=== PATIENT | female | born 1970 | race African-American/Black ===

== ENCOUNTER 2019-06-21 21:18 | Emergency (ER) | payer OTHER ==
[~2019-06-21] VITALS: Ht 165.1 cm; Wt 79.4 kg
[2019-06-21 21:20] VITALS: BP 125/77
--- NOTE | 2019-06-21 23:21 | NUR ---
PT AMBULATED TO BED 02
[2019-06-21] MEDS ORDERED: diphenhydrAMINE 50 MG/ML VIAL IVP ONE (23:25)
[2019-06-21] MEDS ORDERED: EPINEPHrine 1:1000 - 1 MG/ML AMP IM ONE (23:25)
[2019-06-21] MEDS ORDERED: FAMOTIDINE 20 MG/2 ML VIAL IVP ONE (23:25)
[2019-06-21] MEDS ORDERED: methylPREDNISolone SS 125 MG/2 ML VIAL IVP ONE (23:25)
[2019-06-21] MEDS ORDERED: NACL 0.9% 1,000 ML IV ONE (23:40)
--- NOTE | 2019-06-21 23:48 | NUR ---
48 Y/O FEMALE PRESENT TO ER WITH ALLERGIC REACTION BEGINNING THIS MORNING. HIVES/WELTS THROUGHOUT BODY, SWOLLEN LIPS, SWELLED EYES BEGAN THIS MORNING. PATIENT DOES NOT RECALL HAVING ALLERGIES TO ANYTHING, HAD A MASSAGE LAST NIGHT THAT SHE BELIEVES MAY HAVE CAUSED REACTION. DENIES SOB/CP. RESP EVEN AND UNLABORED. LUNG SOUNDS CLEAR IN BILAT LOBES. BOWEL SOUNDS NORMOACTIVE IN ALL QUADRANTS. SKIN INTACT. AIRWAY REMAINS UNOBSTRUCTED. WELTS NOTED IN UPPER/LOWER BILAT EXTREMITIES. AAOX4 NO PMH NKA
--- NOTE | 2019-06-22 00:36 | NUR ---
SWELLING HAS DECREASED IN LIPS, PT REPORTS LESS ITCHINESS AND REDUCTION IN HIVES
[2019-06-22 00:42] VITALS: BP 125/77
--- NOTE | 2019-06-22 00:43 | NUR ---
Patient discharged with v/s stable. Written and verbal after care instructions given and explained. Patient alert, oriented and verbalized understanding of instructions. Ambulatory with steady gait. All questions addressed prior to discharge. ID band removed. Patient advised to follow up with PMD. Rx of BENADRYL, PREDISONE, EPIPEN given. Patient educated on indication of medication including possible reaction and side effects. Opportunity to ask questions provided and answered.
--- NOTE | 2019-06-22 12:52 | NUR ---
Late entry. Confirmed with RN that 0.9 NS IV completed at 2440
[2019-06-23] MEDS ORDERED: BEN50 PO (08:36)
[2019-06-23] MEDS ORDERED: PRED20TA5 PO (08:36)
== END 2019-06-22 00:43 | disposition home or self-care (01) ==
LOC: MED 21:18
DX: L50.0 Allergic urticaria (principal)
CPT/HCPCS: 96361; 96374; 96375; 99284; J0171; J1200; J2930; J3490; J7030

== ENCOUNTER 2019-06-23 08:17 | Emergency (ER) | payer OTHER ==
[~2019-06-23] VITALS: Ht 165.1 cm; Wt 83.6 kg
[2019-06-23 08:20] VITALS: BP 104/55
--- NOTE | 2019-06-23 08:27 | NUR ---
PT AMBULATED TO ER BED 12
--- NOTE | 2019-06-23 08:30 | NUR ---
48 Y/O FEMALE RETURNS TO [facility], AFTER 48 HR WITH CONTINUED C/O OF RAISED RED BURNING, ITCY BLOTCHES COVERING FACE, AND BODY. PT STATES SHE HAS TAKEN PRESCRIBED RX, BENADRYL, AND PREDNISONE BUT STILL NO RELIEF OF SYMPTOMS. DENIES ANY RESPIRATORY ISSUES, OR CARDIAC ISSUES. DENIES IN GI/ ISSUES. LMP 06/21/2019. SHE STATES AFTER MASSAGE THERAPIST USED UNK OILS ON 06/20/2019, REACTION STARTED. WILL CONTINUE TO MONITOR, SIDERAIL X 1 NO PMH NKDA
[2019-06-23] MEDS ORDERED: BEN50 PO (08:36)
[2019-06-23] MEDS ORDERED: PRED20TA5 PO (08:36)
--- NOTE | 2019-06-23 09:26 | NUR ---
DR. CHEUNG AT BEDSIDE
[2019-06-23 09:50] VITALS: BP 104/55
--- NOTE | 2019-06-23 09:50 | NUR ---
Patient discharged with v/s stable. Written and verbal after care instructions given and explained. Patient alert, oriented and verbalized understanding of instructions. Ambulatory with steady gait. All questions addressed prior to discharge. ID band removed. Patient advised to follow up with PMD. Rx of PREDNISONE, BENADRYL, CIPRO given. Patient educated on indication of medication including possible reaction and side effects. Opportunity to ask questions provided and answered.
== END 2019-06-23 09:50 | disposition home or self-care (01) ==
LOC: MED 08:17
DX: R21 Rash and other nonspecific skin eruption (principal); N39.0 Urinary tract infection, site not specified; Z79.899 Other long term (current) drug therapy
CPT/HCPCS: 81002; 81025; 99283